=== PATIENT | male | born 2000 | race African-American/Black ===

== ENCOUNTER 2020-08-19 08:29 | Emergency (ER) | payer MEDICAID ==
[~2020-08-19] VITALS: Ht 170.2 cm; Wt 59.0 kg
[2020-08-19 12:45] VITALS: BP 128/76
== END 2020-08-19 13:04 | disposition home or self-care (01) ==
LOC: ER 08:53
DX: F12.188 Cannabis abuse with other cannabis-induced disorder (principal); R03.0 Elevated blood-pressure reading, without diagnosis of hypertension
CPT/HCPCS: 99283; Z7610